=== PATIENT | female | born 1970 | race Caucasian/White ===

== ENCOUNTER 2016-12-10 12:40 | Observation (INO) | payer OTHER ==
[~2016-12-10] VITALS: Ht 154.9 cm; Wt 64.5 kg
[~2016-12-10 12:40] MED LIST: IBUP-1542 PO; LORA-441 PO
--- NOTE | 2016-12-10 13:22 | ERA ---
ER Documentation Chief Complaint Date/Time DATE: 12/10/16 TIME: 13:17 Chief Complaint sudden onet facial numbness and tingling. 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 Symptoms began 1-1/2 hours prior to arrival and lasted for approximately 10 minutes. Symptoms have now completely resolved except for mild ongoing lightheadedness and mild dyspnea. Patient denies chest pain, vertigo, fever, headache, diplopia patient. Patient acknowledges significant stress and mild anxiety and poor sleep. ROS All systems reviewed and are negative except as per history of present illness. Medications Home Meds Discontinued Scripts Ibuprofen* (Motrin*) 600 Mg Tab, 600 MG PO Q6, #30 TAB Prov:JERSON HART PA-C 04/03/16 Lorazepam* (Ativan*) 0.5 Mg Tablet, 0.5 MG PO Q8 Y for ANXIETY, #10 Prov:HEBER RICHARDS PA-C 06/06/15 Ibuprofen* (Ibuprofen*) 600 Mg Tablet, 600 MG PO Q6, #30 TAB Prov:HEBER RICHARDS PA-C 06/06/15 Allergies Allergies: Coded Allergies: No Known Allergy (Unverified , 12/10/16) PMhx/Soc Past medical history: None Past surgical history: Back surgery at age 8 Social history: denies alcohol or tobacco History of Surgery: Yes Hx Alcohol Use: No Hx Substance Use: No Hx Tobacco Use: No FmHx Family History: No coronary disease, No diabetes Physical Exam Vitals Vital Signs Date Time Temp Pulse Resp B/P Pulse Ox O2 Delivery O2 Flow Rate FiO2 12/10/16 12:43 98.5 85 20 153/71 99 Physical Exam Const: Alert, oriented, slightly teary-eyed, in no acute distress Head: Atraumatic Eyes: Normal Conjunctiva ENT: Normal External Ears, Nose and Mouth. Neck: Full range of motion. No meningismus. Resp: Clear to auscultation bilaterally Cardio: Regular rate and rhythm, no murmurs Abd: Soft, non tender, non distended. Normal bowel sounds Skin: No petechiae or rashes Back: No midline or flank tenderness Ext: No cyanosis, or edema Neur: Awake and alert. Cranial nerves II through XII intact, no nystagmus. Strength and sensation full in all muscle groups in 4 extremities. No pronator drift. No dysmetria Psych: Patient appears slightly anxious, normal mood Result Diagram: 12/10/16 1335 12/10/16 1335 Results 24 hrs Laboratory Tests Test 12/10/16 13:35 Activated Partial Thromboplast Time 31.4Sec Anion Gap 15 Basophils # 0.110^3/ul Basophils % 1.7% Blood Urea Nitrogen 13mg/dl Calcium Level 9.6mg/dl Carbon Dioxide Level 27mmol/L Chloride Level 105mmol/L Creatinine 0.67mg/dl Eosinophils # 0.010^3/ul Eosinophils % 1.0% Glucose Level 94mg/dl Hematocrit 36.0% Hemoglobin 12.0g/dl INR International Normalized Ratio 1.04 Lymphocytes # 1.410^3/ul Lymphocytes % 33.1% Mean Corpuscular Hemoglobin 29.9pg Mean Corpuscular Hemoglobin Concent 33.3g/dl Mean Corpuscular Volume 89.6fl Mean Platelet Volume 10.0fl Monocytes # 0.310^3/ul Monocytes % 6.1% Neutrophils # 2.410^3/ul Neutrophils % 57.9% Nucleated Red Blood Cells # 0.010^3/ul Nucleated Red Blood Cells % 0.0/100WBC Platelet Count 45422^3/UL Potassium Level 4.1mmol/L Prothrombin Time 13.6Sec Prothrombin Time Ratio 1.1 Red Blood Count 4.0210^6/ul Red Cell Distribution Width 12.6% Sodium Level 143mmol/L Troponin I < 0.012ng/ml White Blood Count 4.110^3/ul Current Medications Medications (Trade) Dose Ordered Sig/Juvencio Route PRN Reason Start Time Stop Time Status Last Admin Dose Admin Sodium Chloride (NS) 1,000 ml @ 1,000 mls/hr Q1H ONCE IV 12/10/16 13:30 12/10/16 14:29 12/10/16 14:02 Lorazepam (Ativan) 0.5 mg ONCE ONCE IV 12/10/16 13:30 12/10/16 13:31 DC 12/10/16 14:02 Aspirin (Aspirin) 162 mg ONCE ONCE PO 12/10/16 14:30 12/10/16 14:31 Procedures/MDM EKG: Time 1344, rate 73, normal sinus rhythm, normal axis and intervals, no ischemic ST-T wave changes no ectopy CT head: No acute abnormality Chest x-ray: No acute abnormality MDM: 46-year-old female with transient episode of left arm weakness and left face and arm numbness with paresthesia. Symptoms are concerning for TIA. Patient does not have identifiable risk factors for TIA and does have significant stressors. Although I believe that conversion disorder is likely cause of the patient's symptoms, cannot exclude an organic cause and will admit for TIA workup Dr. Wolf to admit. ABCD 2 score is 3. Departure Condition: Stable STEFFANY ROSE Dec 10, 2016 13:22
[2016-12-10] MEDS ORDERED: SOD CHLORIDE 0.9% 1,000 ML IV ONE (13:30)
[2016-12-10] MEDS ORDERED: LORAZEPAM 2 MG INJ IV ONE (13:30)
--- NOTE | 2016-12-10 13:31 | RADRPT ---
PROCEDURE: CT Brain without. CLINICAL INDICATION: Dizziness. Left arm weakness. Left facial numbness. TECHNIQUE: A CT of the brain was performed on a multi-slice CT scanner utilizing axial sections fr om the skull base through the vertex without contrast. Coronal and sagittal reconstructed images w ere provided. One or more of the following does reduction techniques were used: Automated exposure control; adjustment of the mA and/or kV according to patient size; use of the aorta of reconstructi on technique. Images were reviewed on a high-resolution PACS workstation. The exam CTDI = 39.49 mGy . The exam DLP = 554.95 mGy-cm. COMPARISON: None available FINDINGS: The ventricles and sulci are symmetric and normal in size and morphology. There is no evidence of i ntracranial hemorrhage, mass effect, edema or midline shift. No abnormal intra-axial or extra-axial fluid collections are seen. The kamara/white matter differentiation is well preserved. There is mild left posterior sphenoid sinus disease. The paranasal sinuses are otherwise clear. Th e mastoid air cells are clear. The surrounding soft tissue scalp and bony calvarium are intact and n ormal. IMPRESSION: 1. No CT evidence of acute intracranial pathology. Given constellation of symptoms, MRI of the brai n should be considered if clinically indicated. 2. Mild left posterior sphenoid sinus disease. RPTAT: KK .Levy Ortiz MD, MD Date Time Electronically viewed and signed by .Levy Ortiz MD, MD on 12/10/2016 13:31 .B/
[2016-12-10 13:49] LABS: ADD SCAN DIFF NO
[2016-12-10 13:50] LABS: BASOPHIL # 0.1 10^3/ul (0.0-0.1); BASOPHILS % 1.7 % (0.0-2.0); LYMPHOCYTES # 1.4 10^3/ul (0.8-2.9); LYMPHOCYTES % 33.1 % (15.0-51.0); MEAN CORPUSCULAR HEMOGLOBIN 29.9 pg (29.0-33.0); MEAN CORPUSCULAR HGB CONC 33.3 g/dl (32.0-37.0); MEAN CORPUSCULAR VOLUME 89.6 fl (82.0-101.0); MONOCYTE # 0.3 10^3/ul (0.3-0.9); MONOCYTES % 6.1 % (0.0-11.0); NEUTROPHIL # 2.4 10^3/ul (1.6-7.5); NEUTROPHILS % 57.9 % (39.0-77.0); PLATELET COUNT 299 10^3/UL (140-415); RED BLOOD COUNT 4.02 10^6/ul (4.20-5.40); RED CELL DISTRIBUTION WIDTH 12.6 % (11.5-14.5); WHITE BLOOD COUNT 4.1 10^3/ul (4.8-10.8)
[2016-12-10 13:59] LABS: POTASSIUM 4.1 mmol/L (3.5-5.1)
[2016-12-10 14:00] LABS: INR 1.04; PROTIME 13.6 Sec (12.2-14.2); PT RATIO 1.1
[2016-12-10 14:01] LABS: CREATININE 0.67 mg/dl (0.44-1.00); PARTIAL THROMBOPLASTIN TIME 31.4 Sec (25.0-35.0)
[2016-12-10 14:03] LABS: CALCIUM 9.6 mg/dl (8.4-10.2)
--- NOTE | 2016-12-10 14:03 | RADRPT ---
PROCEDURE: XR Chest 1 View. CLINICAL INDICATION: Abnormal breath sounds, possible stroke TECHNIQUE: AP view of the chest were obtained. COMPARISON: November 04, 2013 FINDINGS: The heart size is within normal limits. Calcified atherosclerosis is noted in the aorta. Chronic el evation right hemidiaphragm is identified. No consolidations are identified. No pneumothorax is see n. Minimal atelectasis is seen at the left lung base. Osseous structures are intact. IMPRESSION: Calcified atherosclerosis in the aorta. Chronic elevation of the right hemidiaphragm. Hyperexpanded lungs. Minimal atelectasis at the left lung base. RPTAT: AA .Chris Disla MD, MD Date Time Electronically viewed and signed by .Chris Disla MD, on 12/10/2016 14:03 .P/
[2016-12-10] MEDS ORDERED: ASPIRIN 81 MG TAB PO ONE (14:30)
[2016-12-10] MEDS ORDERED: ACETAMINOPHEN 325 MG TAB PO PRN ×2 (16:00→16:30)
[2016-12-10] MEDS ORDERED: ONDANSETRON 4 MG INJ IV PRN (16:00)
[2016-12-10] MEDS ORDERED: NACL 0.9% 3 ML SYG IV SCH (16:30)
[2016-12-10] MEDS ORDERED: morphine 2 MG INJ IV PRN (16:30)
[2016-12-10] MEDS ORDERED: NITROGLYCERIN (SL) 0.4 MG TAB SL PRN (16:30)
[2016-12-10] MEDS ORDERED: ONDANSETRON 4 MG TAB PO PRN (16:30)
[2016-12-10] MEDS ORDERED: DOCUSATE SODIUM 100 MG CAP PO PRN (16:30)
--- NOTE | 2016-12-10 17:05 | RADRPT ---
PROCEDURE: US Carotids. CLINICAL INDICATION: bruit , Tia TECHNIQUE: Multiple sonographic of the carotid bifurcation region and vertebral arteries were obta ined utilizing kamara scale, duplex and color-flow imaging. The images were reviewed on a PACS worksta tion. COMPARISON: No prior studies are available for comparison. FINDINGS: Evaluation of the right carotid bifurcation region reveals no significant calcific atherosclerotic d isease. Evaluation of the left carotid bifurcation region reveals no significant calcific atherosclerotic di sease. There is antegrade flow within the vertebral arteries bilaterally. RIGHT CAROTID MEASUREMENTS: Common Carotid Ymhsiw80.3 (cm/sec) Internal Carotid Artery - jfisgrym58.6 (cm/sec) Internal Carotid Artery - mid62.2 (cm/sec) Internal Carotid Artery - nblqam61.8 (cm/sec) Internal Carotid/Common Carotid1.6 LEFT CAROTID MEASUREMENTS: Common Carotid Ciglvq57.6 (cm/sec) Internal Carotid Artery - jybedtxp94.9 (cm/sec) Internal Carotid Artery - mid75.5 (cm/sec) Internal Carotid Artery - whqevl64.1 (cm/sec) Internal Carotid/Common Carotid1 RPTAT: AA IMPRESSION: No evidence for hemodynamically significant stenosis in the bilateral internal carotid arteries - va lidated velocity measurements with angiographic measurements, velocity criteria are extrapolated fro m diameter data as defined by the Society of Radiologists in Ultrasound Consensus Conference Radiolo gy 2003; 229;340-346. This study does indirectly reference the measurement of the distal ICA diamet er as the denominator for stenosis measurement. Normal antegrade flow in the vertebral arteries bilaterally. .Festus Amato MD, Date Time Electronically viewed and signed by .Festus Amato MD, on 12/10/2016 17:05 .S/
[2016-12-10 17:26] VITALS: TEMP 98.3
[2016-12-10 17:59] VITALS: BP 144/85; PULSE 79; RESP 16
[2016-12-10 18:04] VITALS: Ht 154.9 cm; Wt 64.5 kg
[2016-12-10 18:39] VITALS: PULSE 80
--- NOTE | 2016-12-10 18:40 | HP ---
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 CHIEF COMPLAINT: Facial tingling and left upper extremity tingling. HISTORY OF PRESENT ILLNESS: This is a 46-year-old female with past medical history of anxiety, who presents to [facility] secondary to having acute onset of facial tingling and numb ness and left upper extremity numbness and tingling, which lasted about 20 minutes and resolved spon taneously prior to she presented to [facility]. 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 Upon arrival to the emergency room, C T of the brain was obtained, which showed no CT evidence of acute intracranial pathology. The are symmetric and normal in size and morphology. There is no evidence of intracranial hemorrhage, m ass effect, edema, midline shift. No abnormal intraaxial or extraaxial fluid collection was seen. Mild posterior sphenoid sinus disease. Patient's chest x-ray was calcified atherosclerosis of the a andre, chronic elevation of right hemidiaphragm. EKG showed normal sinus rhythm with no sign of arrh ythmia. The patient's vitals: Temperature 98.5, pulse 85, respiration 20, blood pressure 153/71, o xygen saturation 99% on room air. Patient at this time denies any headache, dizziness, lightheadedn ess. No change in visual acuity, diplopia, photophobia. No abdominal pain. No nausea, vomiting, d iarrhea. No chest pain, no shortness of breath. No numbness, weakness in her extremities. No dysu justin, hematuria, urgency, incontinence. No seizure activity or any other discomfort. PAST MEDICAL AND SURGICAL HISTORY: Questionable anxiety. MEDICATIONS: No active medication. SOCIAL HISTORY: Negative x3 for smoking, alcohol, illicit drugs. FAMILY HISTORY: Negative for CVA, cardiac disease, diabetes mellitus, hypertension, or any other di sease. REVIEW OF SYSTEMS: As above per HPI. Otherwise, 12-point review of systems was found to be negativ e. PHYSICAL EXAMINATION: VITAL SIGNS: Temperature 98.5, pulse 75, respiration 20, blood pressure 153/75, oxygen 99% on room air. GENERAL APPEARANCE: Patient is lying in bed comfortably without any acute distress. He is awake, a lert, oriented. He is able to answer my questions appropriately. EYES AND ENT: Conjunctivae and lids are normal. Pupils are normal. Extraocular normal. Hearing g rossly normal. Lips and tongue are normal. Oral mucosa is moist. NECK: Supple. Trachea is midline. No lymphadenopathy. RESPIRATORY: Effort is normal. Clear to auscultation bilaterally. CARDIOVASCULAR: Normal S1, S2. Regular rhythm and rate. No murmur, no bruits, no edema. Peripher al pulses, radial pulses palpable. Cap refill is normal. CHEST: Normal expansion of thorax during inspiration. GASTROINTESTINAL: Abdomen is soft, nontender, not distended. Bowel sounds present. No guarding, n o rebound. GENITOURINARY: Deferred. MUSCULOSKELETAL: Upper and lower extremities within normal limits. Full range of motion. Strength 5/5 both upper and lower extremities. NEUROLOGIC: Cranial nerves II through XII are grossly intact. PSYCHIATRIC: Normal judgment and insight. Alert and oriented x3. Mood and affect is normal. LABORATORY WORK AND IMAGING: WBC 4.1, hemoglobin 12, hematocrit 36.0, platelets 99. Sodium 143, po tassium 4.1, chloride 105, bicarbonate 27, BUN 13, creatinine 0.67, glucose 94, calcium 9.6. Tropon in negative. Hemoglobin 5.2. ASSESSMENT AND PLAN: 1. Left upper extremity and facial tingling, numbness. Could be a question with transient ischemic attack. Although CT of the brain is normal, will obtain a 2D echocardiogram and carotid Doppler. Ana Cristina mcdermott's EKG is normal sinus rhythm with no sign of arrhythmia. Will place the patient on aspirin. Will follow lipid panel and will continue to monitor patient's blood pressure. 2. Mildly elevated blood pressure. This is likely secondary to patient's anxiety, and we will cont inue to monitor and treat accordingly. 3. For deep venous thrombosis prophylaxis, on Lovenox. 4. We will continue to monitor patient closely. Further recommendation, management, and treatment as per clinical course. Time spent for evaluation of patient and admission workup: 45 minutes. Dictated By: KATHERYN HILARIO/KATEY Conf#: [id number] DID#: [id number]
[2016-12-10 19:49] VITALS: BP 143/74; RESP 20
[2016-12-10 20:17] VITALS: PULSE 78
[2016-12-10 22:42] VITALS: BP 123/65; RESP 20
[2016-12-11] VITALS (10 sets, daily range): BP systolic 112–132; BP diastolic 55–74; PULSE 62–86; RESP 16–19
[2016-12-11] MEDS ORDERED: PANTOPRAZOLE (EC) 40 MG TAB PO SCH (06:00)
[2016-12-11] MEDS ORDERED: ENOXAPARIN 40 MG/0.4 ML SYG SC SCH (09:00)
[2016-12-11] MEDS ORDERED: ASPIRIN 81 MG TAB PO SCH (09:00)
[2016-12-11] MEDS ORDERED: ASPI81TA3 PO (12:53)
--- NOTE | 2016-12-11 12:53 | PDOCDIS ---
Discharge Instructions CONDITION Patient Condition: Good HOME CARE INSTRUCTIONS: Special Diet: CARDIAC ACTIVITY: Activity Restrictions: No Restrictions FOLLOW UP/APPOINTMENTS Appointments Follow up with PCP in one week KATHERYN LACEY MD Dec 11, 2016 12:52
[2016-12-11 12:55] LABS: ADD SCAN DIFF NO
[2016-12-11 12:56] LABS: BASOPHIL # 0.1 10^3/ul (0.0-0.1); BASOPHILS % 1.5 % (0.0-2.0); EOSINOPHILS # 0.1 10^3/ul (0.0-0.5); EOSINOPHILS % 2.5 % (0.0-7.0); HEMATOCRIT 36.7 % (37.0-47.0); HEMOGLOBIN 11.8 g/dl (12.0-16.0); LYMPHOCYTES % 50.4 % (15.0-51.0); MEAN CORPUSCULAR HEMOGLOBIN 29.5 pg (29.0-33.0); MEAN CORPUSCULAR HGB CONC 32.2 g/dl (32.0-37.0); MEAN CORPUSCULAR VOLUME 91.8 fl (82.0-101.0); MEAN PLATELET VOLUME 9.9 fl (7.4-10.4); MONOCYTE # 0.4 10^3/ul (0.3-0.9); MONOCYTES % 9.1 % (0.0-11.0); NEUTROPHIL # 1.4 10^3/ul (1.6-7.5); NEUTROPHILS % 36.2 % (39.0-77.0); PLATELET COUNT 285 10^3/UL (140-415)
[2016-12-11 13:05] LABS: POTASSIUM 4.1 mmol/L (3.5-5.1)
[2016-12-11 13:07] LABS: CREATININE 0.84 mg/dl (0.44-1.00)
[2016-12-11 13:08] LABS: CALCIUM 9.1 mg/dl (8.4-10.2); MAGNESIUM 1.8 mg/dl (1.7-2.5)
[2016-12-11 13:09] LABS: CHOL/HDL RATIO 2.3 RATIO
[2016-12-11 13:38] LABS: THYROID STIMULATING HORMONE 1.77 MIU/L (0.465-4.680)
--- NOTE | 2016-12-11 18:35 | RADRPT ---
Echocardiogram Report Patient Name: JUANA MENDOZA Gender: Female Date: 1970 Study Date: 11-Dec-2016 Surgical Endoscopist: Emma Worrell [facility] Location: [address] Ref. Physician: KATHERYN LACEY Quality: Good Procedures: Transthoracic echocardiogram with complete 2D, M-Mode, and doppler examination. Indications: Transient Ischemic Attack. 2D/M Mode Doppler Measurement Value Normal Ranges Measurement Value Normal Ranges LVIDd 2D 3.9 3.5 - 5.6 cm AV Peak Dmitri 1.2 m/sec LVIDs 2D 1.9 2.1 - 4.1 cm AV Peak PG 6.2 mmHg LVPWd 2D 0.9 0.6 - 1.1 cm LVOT Peak Dmitri 1.0 m/sec IVSd 2D 0.7 0.6 - 1.1 cm LVOT Peak PG 3.9 mmHg AoR Diam 2D 2.5 2.0 - 3.7 cm MV E Peak Dmitri 1.0 m/sec EDV 2D 65.9 cm3 MV A Peak Dmitri 0.6 m/sec ESV 2D 6.3 cm3 MV E/A 1.9 LA Dimen 2D 2.9 2.3 - 4.0 cm MV Decel Time 82 msec MV Decel Throckmorton 13 MV E/A 1.9 TR Peak Dmitri 2.5 m/sec TR Peak PG 24.1 mmHg RVSP 27.0 mmHg Findings Left Ventricle: Normal left ventricular systolic function. Normal left ventricular cavity size. Normal left ventricular wall thickness. Ejection fraction is visually estimated at 65 %. Tissue Doppler/Mitral Doppler indices are within normal limits. Right Ventricle: Normal right ventricular size. Normal right ventricular systolic function. Left Atrium: The left atrium is normal in size. Right Atrium: The right atrium is normal in size. Mitral Valve: Mild mitral annular calcification. Trace mitral regurgitation. Aortic Valve: Normal appearance of the aortic valve. No significant aortic stenosis or insufficiency. Tricuspid Valve: Normal appearance of the tricuspid valve. Estimated peak PA systolic pressure 27 mmHg. There is trace tricuspid regurgitation. Pulmonic Valve: Normal pulmonic valve appearance. Pericardium: Normal pericardium with no significant pericardial effusion. Aorta: Normal aortic root. IVC: Normal size and normal respiratory collapse consistent with normal right atrial pressure. Conclusions 1.Normal left ventricular systolic function. Normal left ventricular cavity size. Normal left ventricular wall thickness. Ejection fraction is visually estimated at 65 %. Tissue Doppler/Mitral Doppler indices are within normal limits. 2.No significant valvular stenosis or regurgitation seen. 3.Estimated peak PA systolic pressure 27 mmHg based on RA pressure of 3 mmHg. Electronically Signed By: Kris Seth 11-Dec-2016 18:35:08 -0800 Patient Name: JUANA MENDOZA Study Date: 11-Dec-2016 [id number]
--- NOTE | 2016-12-11 22:25 | DS ---
DATE OF ADMISSION: 12/10/2016 DATE OF DISCHARGE: 12/11/2016 CONSULTANTS: Physical therapy. DISCHARGE DIAGNOSES: 1. Left upper extremity and facial tingling and numbness. The CT of the brain was normal with no a cute finding. The patient's EKG was normal sinus rhythm with no arrhythmia. The patient was placed on aspirin. 2. Mildly elevated blood pressure. This was likely secondary to patient's anxiety, resolved. 3. Anxiety. Follow up with primary care physician as outpatient. MEDICATIONS: Aspirin 81 mg daily. ALLERGIES: NO KNOWN DRUG ALLERGIES. DISPOSITION: Home. DIET: Low fat diet. HOSPITAL COURSE: This is a 46-year-old female with past medical history of anxiety who presented to [facility] secondary to having acute onset of facial tingling and numbness and le ft upper extremity numbness and tingling, which lasted 20 minutes and resolved spontaneously prior t o presentation to [facility]. 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 No abnormal intraaxial or extraaxial fluid collection was seen. The patient's chest x-ray was calcified atherosclerosis of the aorta, chronic elevation of the right hemidiaphragm. EKG showed normal sinus rhythm with no sign of arrhythmia. T he patient's vitals were stable, except her blood pressure was found to be mildly elevated at 153/71 . The patient was admitted to telemetry floor in which she was started on aspirin. A 2D echocardio gram was obtained. The patient's troponin was found to be negative. Hemoglobin A1c 5.2. The patie nt's blood pressure improved spontaneously during this course of hospitalization without any medical treatment. PHYSICAL EXAMINATION: GENERAL: The patient this morning is lying in bed comfortably without any distress. She is awake, alert, oriented. CHEST: Normal expansion of thorax during inspiration. EYES and ENT: Conjunctivae and lids are normal. Pupils are normal. Extraocular normal. NECK: Supple. Trachea is midline. CARDIOVASCULAR: Normal S1, S2. Regular rhythm and rate. LUNGS: Clear to auscultate bilaterally. EXTREMITIES: Upper and lower extremities within normal limits. Strength is 5/5 both upper and lowe r extremities. NEUROLOGIC: Cranial nerves II through XII are grossly intact. The patient is awake, alert, oriente d. At this time, the patient is medically stable to be discharged home with close followup with her [facility] physician as outpatient. I have spoken to her regarding her anxiety. The patient needs t o be seen and evaluated by her primary care physician for further evaluation in that regard. CONDITION AT TIME OF DISCHARGE: Stable. Dictated By: KATHERYN HILARIO/NTS Conf#: [id number] DID#: [id number]
== END 2016-12-11 20:20 | disposition home or self-care (01) ==
LOC: E/R 12:40 → TEL 15:43
PROVIDERS: ADMIT Family Medicine; ATTEND Family Medicine
DX: R20.0 Anesthesia of skin (principal); R03.0 Elevated blood-pressure reading, without diagnosis of hypertension; F41.9 Anxiety disorder, unspecified
CPT/HCPCS: 70450; 71010; 80048; 80061; 83036; 83735; 84443; 84484; 85025; 85610; 85730; 93005; 93306; 93880; 96372; 97162; J1650; J2060; J7030; Z7500; Z7610; G0378